=== PATIENT | male | born 1970 | race Caucasian/White ===

== ENCOUNTER 2019-01-30 14:21 | Inpatient (IN) | payer OTHER ==
[~2019-01-30] VITALS: Ht 177.8 cm; Wt 100.0 kg
[2019-01-30 15:13] LABS: BASOPHIL % 0.8 % (0-2); PLATELET COUNT 188 x10^3mcL (130-400)
[2019-01-30 15:24] LABS: CALCIUM 9.7 mg/dL (8.5-10.1); CHLORIDE SERUM 103 mmol/L (98-107); CREATININE SERUM 0.7 mg/dL (0.7-1.3); GFR1 > 60 mL/min; GLUCOSE SERUM 99 mg/dL (74-106); POTASSIUM SERUM 3.8 mmol/L (3.5-5.1); SODIUM SERUM 139 mmol/L (136-145)
[2019-01-30 15:28] LABS: ALBUMIN 4.2 g/dL (3.4-5.0); ALKALINE PHOSPHATASE 83 U/L (46-116); ALT/SGPT 41 U/L (16-63); AST/SGOT 18 U/L (15-37); BILIRUBIN TOTAL 0.3 mg/dL (0.20-1.00); TOTAL PROTEIN, SERUM 7.8 g/dL (6.4-8.2)
[2019-01-30] MEDS ORDERED: VICTOZA6 MG/M1 SC (18:19)
[2019-01-30] MEDS ORDERED: NOR5 PO (18:20)
[2019-01-30] MEDS ORDERED: METFORMIN HCL1000 MG PO (18:20)
[2019-01-30] MEDS ORDERED: BASAGLAR K100 UNIT/1 SQ (18:20)
[2019-01-30] MEDS ORDERED: COZAAR100 MG PO (18:21)
[2019-01-30] MEDS ORDERED: CRESTOR5 M1 PO (18:21)
[2019-01-30 18:33] LABS: MAGNESIUM 1.5 mg/dL (1.8-2.4); PHOSPHOROUS 3.5 mg/dL (2.5-4.9)
[2019-01-30 18:46] LABS: T3 TOTAL 0.97 ng/mL
[2019-01-30 18:49] LABS: CHOLESTEROL/HDL RATIO 2.8
[2019-01-30 19:04] VITALS: BP 149/77
[2019-01-30 19:11] VITALS: Ht 177.8 cm; Wt 100.0 kg
[2019-01-30 19:25] LABS: FREE T4 1.04 ng/dL (0.76-1.46); FREE THYROXINE INDEX 2.8 ug/dL (1.4-4.5); T4(THYROXINE) 8.3 ug/dL (4.7-13.3)
[2019-01-30 19:59] VITALS: BP 131/70
[2019-01-31 04:01] VITALS: BP 125/69
[2019-01-31 06:32] LABS: BASOPHIL % 0.7 % (0-2); PLATELET COUNT 153 x10^3mcL (130-400)
[2019-01-31 06:37] LABS: CALCIUM 9.4 mg/dL (8.5-10.1); CARBON DIOXIDE 26.3 mmol/L (21-32); CHLORIDE SERUM 105 mmol/L (98-107); CREATININE SERUM 0.7 mg/dL (0.7-1.3); GFR1 > 60 mL/min; GLUCOSE SERUM 85 mg/dL (74-106); POTASSIUM SERUM 3.8 mmol/L (3.5-5.1); SODIUM SERUM 142 mmol/L (136-145)
[2019-01-31 09:01] VITALS: BP 124/70
[2019-01-31 10:25] LABS: microscopic required? NO
[2019-01-31 10:37] LABS: UA SPECIFIC GRAVITY <=1.005 (1.005-1.035); urine erythrocyte NEGATIVE (NEGATIVE)
[2019-01-31 10:54] LABS: AMPHETAMINE QUAL UR NONE DETECTED (See below)
[2019-01-31 17:15] VITALS: BP 124/72
[2019-01-31 20:43] VITALS: BP 123/77
[2019-02-01 03:52] VITALS: BP 131/72
[2019-02-01 06:48] LABS: CALCIUM 9.2 mg/dL (8.5-10.1); CARBON DIOXIDE 31.4 mmol/L (21-32); CHLORIDE SERUM 107 mmol/L (98-107); CREATININE SERUM 0.6 mg/dL (0.7-1.3); GFR1 > 60 mL/min; GLUCOSE SERUM 93 mg/dL (74-106); MAGNESIUM 1.9 mg/dL (1.8-2.4); PHOSPHOROUS 3.6 mg/dL (2.5-4.9); POTASSIUM SERUM 3.9 mmol/L (3.5-5.1); SODIUM SERUM 144 mmol/L (136-145)
[2019-02-01 06:49] LABS: BASOPHIL % 0.8 % (0-2); PLATELET COUNT 150 x10^3mcL (130-400); RED CELL DISTRIBUTION WIDTH 14.1 % (11.5-14.5)
[2019-02-01 09:18] VITALS: BP 132/66
[2019-02-01 15:15] VITALS: BP 130/76
[2019-02-01 16:18] VITALS: BP 141/76
[2019-02-01 22:12] VITALS: BP 126/64
[2019-02-02 05:47] VITALS: BP 122/57
[2019-02-02 07:39] LABS: BASOPHIL % 0.4 % (0-2); PLATELET COUNT 148 x10^3mcL (130-400); RED CELL DISTRIBUTION WIDTH 13.3 % (11.5-14.5)
[2019-02-02 08:44] LABS: CALCIUM 9.1 mg/dL (8.5-10.1); CARBON DIOXIDE 25.8 mmol/L (21-32); CHLORIDE SERUM 107 mmol/L (98-107); CREATININE SERUM 0.7 mg/dL (0.7-1.3); GFR1 > 60 mL/min; GLUCOSE SERUM 82 mg/dL (74-106); MAGNESIUM 1.8 mg/dL (1.8-2.4); PHOSPHOROUS 3.3 mg/dL (2.5-4.9); POTASSIUM SERUM 3.7 mmol/L (3.5-5.1); SODIUM SERUM 143 mmol/L (136-145)
[2019-02-02 09:13] VITALS: BP 119/63
[2019-02-02 17:09] VITALS: BP 125/64
[2019-02-02 21:11] VITALS: BP 139/70
[2019-02-03 05:10] VITALS: BP 136/57
[2019-02-03 07:33] LABS: BASOPHIL % 0.4 % (0-2); PLATELET COUNT 162 x10^3mcL (130-400); RED CELL DISTRIBUTION WIDTH 13.8 % (11.5-14.5)
[2019-02-03 07:49] LABS: CALCIUM 9.2 mg/dL (8.5-10.1); CARBON DIOXIDE 30.4 mmol/L (21-32); CHLORIDE SERUM 107 mmol/L (98-107); CREATININE SERUM 0.7 mg/dL (0.7-1.3); GFR1 > 60 mL/min; GLUCOSE SERUM 98 mg/dL (74-106); POTASSIUM SERUM 3.6 mmol/L (3.5-5.1); SODIUM SERUM 144 mmol/L (136-145)
[2019-02-03 08:39] VITALS: BP 142/65
[2019-02-03] MEDS ORDERED: LEVAQUIN750 MG PO (10:05)
[2019-02-03 10:06] VITALS: BP 142/65
== END 2019-02-03 11:45 | disposition home or self-care (01) | DRG 617 ==
LOC: ED 14:21 → MU 17:41
PROVIDERS: Podiatrist Foot & Ankle Surgery; ADMIT Family Medicine
PROC: 0L8P0ZZ Division of Left Lower Leg Tendon, Open Approach (ICD-10-PCS; 2019-02-01)
PROC: 0JBR0ZZ Excision of Left Foot Subcutaneous Tissue and Fascia, Open Approach (ICD-10-PCS; 2019-02-01)
PROC: 0QBP0ZZ Excision of Left Metatarsal, Open Approach (ICD-10-PCS; 2019-02-01)
PROC: 0Y6Q0Z1 Detachment at Left 1st Toe, High, Open Approach (ICD-10-PCS; principal; 2019-02-01 13:30)
DX: E11.621 Type 2 diabetes mellitus with foot ulcer (principal); M86.8X7 Other osteomyelitis, ankle and foot; L97.529 Non-pressure chronic ulcer of other part of left foot with unspecified severity; E83.42 Hypomagnesemia; E66.9 Obesity, unspecified; E11.69 Type 2 diabetes mellitus with other specified complication; I10 Essential (primary) hypertension; Z82.49 Family history of ischemic heart disease and other diseases of the circulatory system; Z83.3 Family history of diabetes mellitus; Z68.34 Body mass index [BMI] 34.0-34.9, adult
CPT/HCPCS: 82962; 83880; 84439; J2543; J3010; J3370; J3490; J7030; J7040; Q0092